=== PATIENT | female | born 1930 | race Two or more races ===

== ENCOUNTER 2022-07-24 11:21 | Emergency (ER) | payer OTHER ==
[~2022-07-24] VITALS: Ht 157.5 cm; Wt 45.4 kg
[~2022-07-24 11:21] MED LIST: ASA81 MG; EXELON1 PATCH .1; LEVOXYL25 MCG; NAMENDA10 MG; SERTRALINE HCL50 MG; SIMVASTATIN20 MG
== END 2022-07-24 18:10 | disposition home or self-care (01) ==
LOC: ER 11:21
DX: R55 Syncope and collapse (principal); G30.9 Alzheimer's disease, unspecified; F02.80 Dementia in other diseases classified elsewhere, unspecified severity, without behavioral disturbance, psychotic disturbance, mood disturbance, and anxiety; Z88.2 Allergy status to sulfonamides; Z88.0 Allergy status to penicillin; E03.9 Hypothyroidism, unspecified; Z20.822 Contact with and (suspected) exposure to COVID-19